=== PATIENT | female | born 1965 | race Caucasian/White ===

== ENCOUNTER 2023-12-31 07:54 | Day surgery (SDC) | payer BC ==
[2023-12-31] MEDS: Lactated Ringers 1,000 ML IV SCH (08:27)
[2023-12-31] MEDS ORDERED: Lidocaine 2% 5 ML SDV ONE (08:45)
[2023-12-31] MEDS ORDERED: propofoL 50 ML ONE (08:45)
== END 2023-12-31 11:05 | disposition home or self-care (01) ==
LOC: MW.SDS 07:54
PROVIDERS: ATTEND Surgery
DX: Z12.11 Encounter for screening for malignant neoplasm of colon (principal); K57.30 Diverticulosis of large intestine without perforation or abscess without bleeding; I10 Essential (primary) hypertension; E03.9 Hypothyroidism, unspecified; Z80.0 Family history of malignant neoplasm of digestive organs; Z79.890 Hormone replacement therapy; Z79.899 Other long term (current) drug therapy
CPT/HCPCS: 45378; J2704; J7120; J3490